=== PATIENT | female | born 2005 | race Hispanic/Latino ===

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

== ENCOUNTER 2024-04-30 14:55 | Emergency (ER) | payer MEDICAID ==
[~2024-04-30] VITALS: Ht 160 cm; Wt 63.5 kg
--- NOTE | 2024-04-30 15:25 | EKG ---
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
--- NOTE | 2024-04-30 15:26 | ERN ---
ED Note History of Present Illness Stated Complaint: CP,VOMITTING, CRAMPING Chief Complaint: Abdominal Pain Time Seen by MD: 14:55 Dictation: History of present illness: 19-year-old female with history of anxiety, testosterone treatment for gender transition presented to ED with complaints of chest tightness over the epigastric region, abdominal cramps, vomiting since yesterday night. She developed chest pain suddenly which worsens with change in body position. She vomited twice which was clear disease as per the patient she stopped vaping this February, she use weed occasionally. She states that she uses weed occasionally. Her last menstrual period was on 18 March which lasted for only 1 day. She denies fever, no dysuria, no shortness of breath, no palpitations, no sweating. Allergies: Coded Allergies: amoxicillin (Unverified Allergy, Unknown, 03/21/19) clavulanic acid (Unverified Allergy, Unknown, 03/21/19) Home Meds Active Scripts Pantoprazole Sodium (Pantoprazole Sodium) 20 Mg Tablet.dr, 1 TAB PO DAILY for 10 Days, #10 TAB 0 Refills Prov:NATALIA RAMÍREZ MD 04/30/24 Sulfamethoxazole/Trimethoprim (Bactrim Ds Tablet) 1 Each Tablet, 1 TAB PO BID for 7 Days, #14 TAB 0 Refills Prov:PAKO RAO 08/17/22 Sulfamethoxazole/Trimethoprim (Bactrim Ds Tablet) 1 Each Tablet, 1 TAB PO BID PRN for uti for 7 Days, #14 TAB 0 Refills Prov:THERESE BORJA MD 02/17/21 Ibuprofen (Ibuprofen 800 mg Tab) 800 Mg Tab, 800 MG PO Q8H PRN for pain for 10 Days, #30 TAB 0 Refills Prov:THERESE BORJA MD 02/17/21 Past Medical History Past Medical History: Anxiety, Depression Additional Past Medical Hx: PTSD, BULEMIA, ANOREXIA Surgical History: None LMP: Apr 16, 2024 : 0 Para: 0 Review of System Dictation REVIEW OF SYSTEMS Positive for epigastric tightness, lower abdominal cramps CONSTITUTIONAL: Denies fevers, chills, or night sweats. No unintentional weight loss reported. ENT: No hearing loss, otalgia, otorrhea, rhinitis, rhinorrhea, hoarseness, or sore throat. CARDIOVASCULAR: Denies any exertional angina, dyspnea on exertion, orthopnea, paroxysmal nocturnal dyspnea, palpitations claudication. PULMONARY: Denies any shortness of breath, cough, phlegm / sputum, hemoptysis, pleuritic chest pain. SLEEP: Denies morning headaches, daytime somnolence or napping. Denies difficulty falling asleep, staying asleep, waking from sleep. Denies knowledge of snoring. GASTROINTESTINAL: Denies any type of dysphagia to either liquids or solids. Denies nausea, vomiting, abdominal pain, diarrhea, constipation, blood in stools . NEUROLOGICAL: Denies headache, motor weakness, sensory deficit, vertigo / spinning sensation, gait abnormalities, or tremors. GENITOURINARY: Denies frequency, urgency, nocturia, hematuria or incontinence, low urinary stream, straining to void, urinary intermittency or hesitancy ENDOCRINOLOGY: Denies polyuria, polydipsia, polyphagia or heat / cold intolerance. HEMATOLOGY: Denies thrombophilia / previous clots, or coagulopathy / bleeding disorders. ONCOLOGIC: Denies personal history of malignancy. DERMATOLOGIC: Denies rashes or pruritus. PSYCHIATRIC: Denies any suicidal or homicidal ideation. Denies hallucinations. Initial Vital Sign VS Vital Signs Date Time Temp Pulse Resp B/P (MAP) Pulse Ox O2 Delivery O2 Flow Rate FiO2 04/30/24 14:57 98.6 126 16 150/101 99 Room Air 0 04/30/24 18:19 21 Physical Exam Dictation PHYSICAL EXAM GENERAL APPEARANCE: Well nourished . Awake and alert. Oriented to time, place and person. No acute cardiopulmonary distress. HEENT: Head normocephalic , atraumatic. Sclera anicteric . Pupils are round and reactive. Extraocular movements intact . No conjunctival injection. No nasal congestion. No throat congestion .Oral mucosa moist. NECK: Supple. No JVD. No thyromegaly. No submental, submandibular, pre- /postauricular, occipital or supraclavicular lymphadenopathy. No carotid bruits. CHEST: Normal chest expansion. No Telemetry. LUNGS: Clear to auscultation bilaterally . No rales, rhonchi or any wheezing. Equal tactile fremitus. Resonant to percussion . CARDIOVASCULAR: Regular rate and rhythm. S1 and S2 normal. No rubs, murmurs or gallops. ABDOMEN: Soft, suprapubic tenderness+ and nondistended. There is no rebound tenderness, voluntary guarding, or rigidity. No hepatosplenomegaly. Bowel sounds normal in all four quadrants . NEUROLOGICAL: Cranial nerves II-XII grossly intact. Motor is 5/5 in bilateral upper and lower extremities . No sensory deficits. EXTREMITIES: No edema, No cyanosis , No clubbing. Good capillary refill. SKIN: No skin breakdown. No rashes or lesions . PSYCHIATRY: Normal affect .No auditory or visual hallucinations. Normal speech. No dysarthria. Results (Laboratory/Radiology) Laboratory/Radiology Laboratory Tests Test 04/30/24 15:36 04/30/24 17:40 White Blood Count 7.9 K/uL (4.8-10.8) Red Blood Count 5.94 MIL/uL (4.00-5.50) H Hemoglobin 16.2 g/dL (12.0-16.0) H Hematocrit 48.4 % (36-48) H Mean Corpuscular Volume 81.5 fL (80-100) Mean Corpuscular Hemoglobin 27.3 pg (27.0-33.0) Mean Corpuscular Hemoglobin Concent 33.5 g/dL (32.0-36.0) Red Cell Distribution Width 15.1 % (11.0-15.5) Platelet Count 142 K/uL (130-400) Mean Platelet Volume 11.7 fL (7.5-10.5) H Nucleated Red Blood Cells 0.0 % (0.0-0.19) Sodium Level 139 mmol/L (136-145) Potassium Level 3.7 mmol/L (3.5-5.1) Chloride Level 107 mmol/L (101-111) Carbon Dioxide Level 22 mmol/L (21-32) Blood Urea Nitrogen 8 mg/dL (7-18) Creatinine 0.7 mg/dL (0.5-1.0) Glomerular Filtration Rate Calc 127 mL/min (>90) Random Glucose 103 mg/dL (70-105) Total Calcium 9.5 mg/dL (8.5-10.1) Troponin I High Sensitivity < 4 ng/L (4-50) L Urine Color COLORLESS (YELLOW) Urine Appearance CLEAR (CLEAR) Urine pH 7.0 (5.0-8.0) Urine Specific [place] 1.004 (1.001-1.031) Urine Protein NEGATIVE mg/dL (NEGATIVE) Urine Glucose (UA) NEGATIVE mg/dL (NEGATIVE) Urine Ketones NEGATIVE mg/dL (NEGATIVE) Urine Occult Blood NEGATIVE (NEGATIVE) Urine Nitrate NEGATIVE (NEGATIVE) Urine Bilirubin NEGATIVE mg/dL (NEGATIVE) Urine Urobilinogen 0.2 mg/dL (0.2-1.0) Urine Leukocyte Esterase 250 Robinson/uL (NEGATIVE) H Urine RBC 0-1 /HPF (0-1) Urine WBC 6-10 /HPF (0-1) H Urine Squamous Epithelial Cells FEW /HPF (0-2) Urine Bacteria RARE /HPF (None Seen) Urine HCG, Qualitative NEGATIVE (NEGATIVE) Ultrasound Comment: PROCEDURE: ABDOMEN - US ABDOMINAL COMPLETE Exam Type: US ABDOMINAL COMPLETE Clinical Information: Abdominal cramps, vomiting LMP Feb 2024 Comparison: None Findings: The liver shows normal echogenicity and is otherwise unremarkable. The liver measures less than 16 cm in length. Doppler evaluation shows patent portal and hepatic veins. The gallbladder shows no significant abnormalities. Specifically, no calculi are seen. The gallbladder wall thickness is 2 mm. No bile duct dilatation is noted. The common bile duct measures 4 mm. The right kidney measures 10.2 x 4 cm. The left kidney measures 8.6 x 4 cm. The kidneys are normal in size and echogenicity. No hydronephrosis or renal calculi are seen. There are no renal masses. The pancreas is unremarkable. The spleen is unremarkable. The aorta and inferior vena cava show no significant abnormalities. IMPRESSION: Normal exam. ED Course ED Course Orders Procedure Category Date Status Time 12 Lead Ekg Tracing- EKG 04/30/24 Complete Technical 15:13 Troponin I High LAB 04/30/24 Complete Sensitivity 15:13 Urinalysis Profile LAB 04/30/24 Complete 15:13 ,Urine Test LAB 04/30/24 Complete 15:13 Dicyclomine Hcl PHA 04/30/24 Complete (Bentyl 20mg Inj) 15:30 Cbc Without LAB 04/30/24 Complete Differential 15:13 Basic Metabolic Panel LAB 04/30/24 Complete 15:40 Us Abdominal Complete US 04/30/24 Resulted 16:08 Culture Urine ANSELMO 04/30/24 In Process 18:07 Current Medications Medications (Trade) Dose Ordered Sig/Elicia Route PRN Reason Start Time Stop Time Status Last Admin Dose Admin Dicyclomine HCl (Bentyl 20mg Inj) 10 mg ONCE ONCE IM 3/10/25 15:30 04/30/24 15:31 DC 04/30/24 18:25 Vital Signs Date Time Temp Pulse Resp B/P (MAP) Pulse Ox O2 Delivery O2 Flow Rate FiO2 04/30/24 18:19 98.6 92 16 142/92 99 Room Air* 0 21 04/30/24 14:57 98.6 126 16 150/101 99 Room Air 0 3:15 p.m. patient is hemodynamically stable. Complains of epigastric tightness and lower abdominal cramping. We will request CBC, BNP, urinalysis, UPT and ultrasound abdomen. 4:30 p.m.: Patient is hemodynamically stable. Status post 1 dose of dicycl omine. Pending urinalysis 5:15 p.m. pending urinalysis. Patient states that she feels better. We will discharge home after the urine analysis results. . Medical Decision Making MDM Differential diagnosis : Urinary tract infection, ACS, Rationale: Tests considered and ordered secondary to shared decision making include: I will re-evaluate the patient after treatment and diagnostic exams have returned to determine whether they require further testing, can be safely disc harged home, or need admission for further treatment and evaluation. Given the social determinants of health affecting care, including literacy, access to medical care, prescription drug management, and [id number] drugs, I will ensure that treatment plans are tailored accordingly. There are no social concerns with this patient. Risk of complication and/or morbidity or mortality of patient management: None Need for hospitalization: Patient does not meet criteria for hospitalization. Need for emergency major/minor surgery: No Prescription drug management Prescriptions will include symptomatic care Medications-Per medication reconciliation Previous outside records reviewed: Old ER visits. Patient's prior external medical records from other ER visits were reviewed by me as indicated. Prior testing and results from previous visits were reviewed. Prior tests were taken into account with medical decision making and resource utilization, independent historian/historians were used to obtain complete medic al history. I independently interpreted the test that were performed, results were reviewed by me and considered findings on radiology. Medical management and examination interpretation discussions was done by me with other qualified healthcare professionals as indicated for the patient's care. Revaluation-patient remained hemodynamically stable. CBC, BMP, ultrasound abdomen was negative. Disposition : Discharge home DX & DISP Disposition: Discharge Departure Impression: Primary Impression: Acute gastritis Condition: Stable Scripts Pantoprazole Sodium (Pantoprazole Sodium) 20 Mg Tablet.dr 1 TAB PO DAILY for 10 Days, #10 TAB 0 Refills Prov: NATALIA RAMÍREZ MD 04/30/24 Additional Instructions: Follow-up with primary care provider in 1-2 days Take medications as directed here in the emergency room. It is okay to continue home medications unless otherwise discussed during your visit in the emergency room today. Increase oral hydration. If a wound culture or urine culture was ordered here in the emergency room department, please follow-up with primary care provider and advised them to get reports from our facility. If you had any Tres wrap/splints that were applied here placed to not remove them until you see your primary care physician. Return to your nearest emergency room if symptoms worsen or if there is no improvement. Call 911 if you need immediate assistance. Referrals: ARMANDO LUTZ DO (PCP) I performed a substantive portion of the visit. I have reviewed and personally made and approve the management plan that is documented in the notes by myself with ANDRES/resident. I acknowledged full responsibility for the patient's management plan. NATALIA RAMÍREZ MD Apr 30, 2024 15:26 CHRISTOPHER SMITH DO Apr 30, 2024 18:44
[2024-04-30 15:50] LABS: HEMATOCRIT 48.4 % (36-48); MEAN CORPUSCULAR HEMOGLOBIN 27.3 pg (27.0-33.0); MEAN CORPUSCULAR HGB CONC 33.5 g/dL (32.0-36.0); MEAN CORPUSCULAR VOLUME 81.5 fL (80-100); RED BLOOD CELL COUNT(AUTO) 5.94 MIL/uL (4.00-5.50); RED CELL DISTRIBUTION WIDTH 15.1 % (11.0-15.5); WHITE BLOOD COUNT (AUTO) 7.9 K/uL (4.8-10.8)
[2024-04-30 16:33] LABS: CREATININE 0.7 mg/dL (0.5-1.0); POTASSIUM 3.7 mmol/L (3.5-5.1)
--- NOTE | 2024-04-30 16:45 | HMCIMG ---
Exam Type: US ABDOMINAL COMPLETE Clinical Information: Abdominal cramps, vomiting LMP Feb 2024 Comparison: None Findings: The liver shows normal echogenicity and is otherwise unremarkable. The liver measures less than 16 cm in length. Doppler evaluation shows patent portal and hepatic veins. The gallbladder shows no significant abnormalities. Specifically, no calculi are seen. The gallbladder wall thickness is 2 mm. No bile duct dilatation is noted. The common bile duct measures 4 mm. The right kidney measures 10.2 x 4 cm. The left kidney measures 8.6 x 4 cm. The kidneys are normal in size and echogenicity. No hydronephrosis or renal calculi are seen. There are no renal masses. The pancreas is unremarkable. The spleen is unremarkable. The aorta and inferior vena cava show no significant abnormalities. IMPRESSION: Normal exam.
[2024-04-30] MEDS ORDERED: PANT20TA18 PO (17:22)
[2024-04-30 18:04] LABS: APPEARANCE,URINE CLEAR (CLEAR); BILIRUBIN,URINE NEGATIVE (NEGATIVE); COLOR,URINE COLORLESS (YELLOW); GLUCOSE, URINE (UA) NEGATIVE (NEGATIVE); KETONES,URINE NEGATIVE (NEGATIVE); LEUKOCYTE ESTERASE ,URINE 250 Leu/uL (NEGATIVE); NITRATE,URINE NEGATIVE (NEGATIVE); OCCULT BLOOD,URINE NEGATIVE (NEGATIVE); PROTEIN,URINE NEGATIVE (NEGATIVE); UROBILINOGEN,URINE 0.2 mg/dL (0.2-1.0)
[2024-04-30 18:07] LABS: ADD UA MICROSCOPIC YES
[2024-04-30 18:12] LABS: BACTERIA,URINE RARE /HPF (None Seen); RBC,URINE 0-1 /HPF (0-1); SQUAMOUS EPITHELIAL CELL,UR FEW /HPF (0-2)
[2024-04-30 18:17] LABS: HCG,QUALITATIVE URINE NEGATIVE (NEGATIVE)
[2024-04-30 18:19] VITALS: BP 142/92; PULSE 92; RESP 16; TEMP 98.6; O2SAT 99
[2024-04-30] MEDS: DICYCLOMINE 20MG (10MG/ML) AMP IM ONE (18:25)
== END 2024-04-30 19:12 | disposition home or self-care (01) ==
LOC: EDH 14:55
DX: K29.00 Acute gastritis without bleeding (principal); Z79.899 Other long term (current) drug therapy; Z88.0 Allergy status to penicillin
CPT/HCPCS: 99285; 76700; 84484; 80048; 85027; 87086 ×2; 87186; 81001; 81025; 36415; 96372; 93005; J0500

== ENCOUNTER 2024-07-25 15:15 | Emergency (ER) | payer MEDICAID ==
[~2024-07-25] VITALS: Ht 160 cm; Wt 65.8 kg
[~2024-07-25 15:15] MED LIST changes: +PANT20TA18 PO
--- NOTE | 2024-07-25 15:35 | ERN ---
ED Note History of Present Illness Stated Complaint: LOWER BACK PAIN, FLAKES/RED DOTS IN PEE Time Seen by MD: 15:27 Dictation: PATIENT IS A 19-YEAR-OLD FEMALE COMING IN TODAY WITH HAVING INTERMITTENT LEFT FLANK PAIN WITHOUT NAUSEA VOMITING OR CHANGES IN URINATION FOR A WHILE. SHE IS UNABLE TO FIND HOW LONG STATES SHE IS HAVING NO PAIN NOW. NO FEVER NO CHILLS. SHE STATES THE ONLY REASON SHE CAME TODAY AND SAID IT GOING TO HER DOCTOR AT [facility] IS I SAW SOME RED FLAKESS IN MY PA AND I THOUGHT IT BETTER COME TO THE EMERGENCY ROOM. DENIES ANY HISTORY OF URINARY URGENCY FREQUENCY AND NO PAIN AT THIS TIME. Allergies: Coded Allergies: amoxicillin (Unverified Allergy, Unknown, 03/21/19) clavulanic acid (Unverified Allergy, Unknown, 03/21/19) Home Meds Active Scripts Pantoprazole Sodium (Pantoprazole Sodium) 20 Mg Tablet.dr, 1 TAB PO DAILY for 10 Days, #10 TAB 0 Refills Prov:NATALIA RAMÍREZ MD 04/30/24 Sulfamethoxazole/Trimethoprim (Bactrim Ds Tablet) 1 Each Tablet, 1 TAB PO BID for 7 Days, #14 TAB 0 Refills Prov:PAKO RAOP 08/17/22 Sulfamethoxazole/Trimethoprim (Bactrim Ds Tablet) 1 Each Tablet, 1 TAB PO BID PRN for uti for 7 Days, #14 TAB 0 Refills Prov:THERESE BORJA MD 02/17/21 Ibuprofen (Ibuprofen 800 mg Tab) 800 Mg Tab, 800 MG PO Q8H PRN for pain for 10 Days, #30 TAB 0 Refills Prov:THERESE BORJA MD 02/17/21 Past Medical History Past Medical History: Anxiety, Depression Additional Past Medical Hx: PTSD, BULEMIA, ANOREXIA Surgical History: None : 0 Para: 0 RN Note Reviewed/Agreed w/PFSH: Yes Review of System Dictation CONSTITUTIONAL: NEGATIVE EXCEPT FOR HPI HEAD/FACE: NEGATIVE EXCEPT FOR HPI EENT: NEGATIVE EXCEPT FOR HPI RESPIRATORY: NEGATIVE EXCEPT FOR HPI GASTROINTESTINAL/ABDOMINAL: NEGATIVE EXCEPT FOR HPI GENITOURINARY: NEGATIVE EXCEPT FOR HPI RED FLAKES IN URINE INTERMITTENT RIGHT FLANK PAIN NONE CURRENT MUSCULOSKELETAL: NEGATIVE EXCEPT FOR HPI INTEGUMENTARY: NEGATIVE EXCEPT FOR HPI NEUROLOGICAL/PSYCH: NEGATIVE EXCEPT FOR HPI HEMATOLOGIC/LYMPHATIC: NEGATIVE EXCEPT FOR HPI ALL SYSTEMS NEGATIVE, EXCEPT NOTED ABOVE. 13 POINT REVIEW OF SYSTEMS ASSESSED AND ALL NEGATIVE EXCEPT FOR ABOVE. Initial Vital Sign VS Vital Signs Date Time Temp Pulse Resp B/P (MAP) Pulse Ox O2 Delivery O2 Flow Rate FiO2 07/25/24 15:39 94 16 142/86 98 0 Physical Exam Dictation VITAL SIGNS REVIEWED GENERAL APPEARANCE: ALERT, ORIENTED X 3, NO ACUTE DISTRESS, WELL DEVELOPED, NOURISHED. HEAD AND FACE: NON-TRAUMATIC. EYES: PERRL, PINK CONJUNCTIVAS, EYELID NO TRAUMA, ANTERIOR CHAMBER WITH ARCUS SENILIS. EARS: PINNAS INTACT AND NO SIGNS OF TRAUMA OR ERYTHEMA EAR CANALS CLEAR AND NO DISCHARGE TM NO ERYTHEMA NOSE: NO DISCHARGE, NO BLEEDING. OROPHARYNX: MOUTH NORMAL, TONGUE PINK, PHARYNX CLEAR,NO ERYTHEMA, TONSILS NO EXUDATES, NO ABSCESSES NOTED, MUCOUS MEMBRANE MOIST NECK: SUPPLE, NON-TENDER, NO THYROMEGALY, NO MASSES, NO JVD, NO BRUITS BREAST:DEFERRED CHEST:NO TENDERNESS, NO CREPITUS, NO PARADOXICAL MOVEMENT, NO RETRACTIONS LUNGS:CLEAR, WELL-VENTILATED, SYMMETRIC, NO RALES, NO WHEEZING, NO RHONCHI, NO STRIDOR, GOOD BREATH SOUNDS BILATERALLY HEART: REGULAR RATE, REGULAR RHYTHM, NO MURMUR, NO GALLOPS VASCULAR: NO PERIPHERAL EDEMA, ABDOMEN: SOFT, POSITIVE BOWEL SOUNDS, NONDISTENDED, NO GUARDING, NONTENDER, NO REBOUND, NO MASSES NO HEPATOMEGALY, NO SPLENOMEGALY, NO HERNANDEZ'S SIGN, NO HERNIAS. RECTAL: DEFERRED GENITAL: DEFERRED NEUROLOGICAL: NORMAL SPEECH, MOTOR FUNCTION INTACT, SENSORY FUNCTION INTACT MUSCULOSKELETAL: NECK NONTENDER, FULL RANGE OF MOTION, BACK NONTENDER, FULL RANGE OF MOTION, EXTREMITIES: NONTENDER, FULL RANGE OF MOTION SKIN: COLOR PINK, DRY, NO TURGOR, NO RASH, NO LACERATIONS, NO ABRASIONS, NO CONTUSIONS. LYMPHATIC: DEFERRED Results (Laboratory/Radiology) Laboratory/Radiology Laboratory Tests Test 07/25/24 15:44 07/25/24 15:57 Urine Color COLORLESS (YELLOW) Urine Appearance CLEAR (CLEAR) Urine pH 7.0 (5.0-8.0) Urine Specific [place] 1.001 (1.001-1.031) Urine Protein NEGATIVE mg/dL (NEGATIVE) Urine Glucose (UA) NEGATIVE mg/dL (NEGATIVE) Urine Ketones NEGATIVE mg/dL (NEGATIVE) Urine Occult Blood NEGATIVE (NEGATIVE) Urine Nitrate NEGATIVE (NEGATIVE) Urine Bilirubin NEGATIVE mg/dL (NEGATIVE) Urine Urobilinogen 0.2 mg/dL (0.2-1.0) Urine Leukocyte Esterase NEGATIVE Robinson/uL Urine HCG, Qualitative NEGATIVE (NEGATIVE) White Blood Count 7.0 K/uL (4.8-10.8) Red Blood Count 4.95 MIL/uL (4.00-5.50) Hemoglobin 14.9 g/dL (12.0-16.0) Hematocrit 43.1 % (36-48) Mean Corpuscular Volume 87.1 fL (80-100) Mean Corpuscular Hemoglobin 30.1 pg (27.0-33.0) Mean Corpuscular Hemoglobin Concent 34.6 g/dL (32.0-36.0) Red Cell Distribution Width 12.7 % (11.0-15.5) Platelet Count 219 K/uL (130-400) Mean Platelet Volume 10.5 fL (7.5-10.5) Immature Granulocyte % (Auto) 0.6 % (0-1) Neutrophils (%) (Auto) 56.3 % (40.0-77.0) Lymphocytes (%) (Auto) 35.5 % (21.0-51.0) Monocytes (%) (Auto) 7.2 % (3.0-13.0) Eosinophils (%) (Auto) 0.3 % (0.0-8.0) Basophils (%) (Auto) 0.1 % (0.0-5.0) Neutrophils # (Auto) 3.9 K/uL (1.8-7.7) Lymphocytes # (Auto) 2.5 K/uL (1.0-4.8) Monocytes # (Auto) 0.5 K/uL (0.1-1.0) Eosinophils # (Auto) 0.02 K/uL (0.00-0.70) Basophils # (Auto) 0.01 K/uL (0.00-0.20) Absolute Immature Granulocyte (auto 0.04 K/uL (0-1) Nucleated Red Blood Cells 0.0 % (0.0-0.19) Sodium Level 141 mmol/L (136-145) Potassium Level 3.6 mmol/L (3.5-5.1) Chloride Level 106 mmol/L (101-111) Carbon Dioxide Level 25 mmol/L (21-32) Blood Urea Nitrogen 9 mg/dL (7-18) Creatinine 0.7 mg/dL (0.5-1.0) Glomerular Filtration Rate Calc 127 mL/min (>90) Random Glucose 78 mg/dL (70-105) Total Calcium 9.2 mg/dL (8.5-10.1) Labs Reviewed?: Yes ED Course ED Course Orders Procedure Category Date Status Time Cbc With Differential LAB 07/25/24 Complete ,Urine Test LAB 07/25/24 Complete : Basic Metabolic Panel LAB 07/25/24 Complete Urinalysis Profile LAB 07/25/24 Complete Vital Signs Date Time Temp Pulse Resp B/P (MAP) Pulse Ox O2 Delivery O2 Flow Rate FiO2 07/25/24 15:39 94 16 142/86 98 0 1625/patient's labs are completely unremarkable and [place] book normal. She will be discharged home to follow up a doctor at [facility]. Medical Decision Making MDM Medical decision-making based on urinalysis hCG and basic labs for flank pain. Labs are completely unremarkable and nothing there to substantiate her claims of red flags in her urine. Per follow up with her primary care doctor as needed DX & DISP Disposition: Discharge Departure Impression: Primary Impression: Right flank pain Condition: Stable Additional Instructions: Follow-up with primary care provider in 1 to 2 days. Take medications as directed here in the emergency room. Okay to continue home medications unless otherwise discussed during your visit in the emergency room today. Return to your nearest emergency room if symptoms worsen or if there is no improvement. Call 911 if you need immediate assistance. Take Tylenol or Motrin [id number] as needed and if no contraindications are present. Increase oral hydration. A wound culture or urine culture was ordered here in the emergency room department please follow-up with primary care provider and advise them to get repeat ports from our facility. If you had any Tres wrap/splints that were applied here, please do not remove them until you see your primary care or specialty. Tylenol or Motrin [id number] as needed for pain. Follow up with your doctor at [facility] for management Referrals: SELF,REFERRAL (PCP) Time of Disposition: 16:28 I have reviewed the case, and I agree with, Diagnosis and Plan ALEXANDER SOLIS NP Jul 25, 2024 15:35
[2024-07-25 16:00] LABS: APPEARANCE,URINE CLEAR (CLEAR); BILIRUBIN,URINE NEGATIVE (NEGATIVE); COLOR,URINE COLORLESS (YELLOW); GLUCOSE, URINE (UA) NEGATIVE (NEGATIVE); KETONES,URINE NEGATIVE (NEGATIVE); LEUKOCYTE ESTERASE ,URINE NEGATIVE Leu/uL (NEGATIVE); NITRATE,URINE NEGATIVE (NEGATIVE); OCCULT BLOOD,URINE NEGATIVE (NEGATIVE); PROTEIN,URINE NEGATIVE (NEGATIVE); UROBILINOGEN,URINE 0.2 mg/dL (0.2-1.0)
[2024-07-25 16:02] LABS: BASOPHILS # (AUTO) 0.01 K/uL (0.00-0.20); BASOPHILS % (AUTO) 0.1 % (0.0-5.0); EOSINOPHILS # (AUTO) 0.02 K/uL (0.00-0.70); EOSINOPHILS % (AUTO) 0.3 % (0.0-8.0); HEMATOCRIT 43.1 % (36-48); IMMATURE GRANULOCYTE ABSOLUTE 0.04 K/uL (0-1); LYMPHOCYTES # (AUTO) 2.5 K/uL (1.0-4.8); LYMPHOCYTES % (AUTO) 35.5 % (21.0-51.0); MEAN CORPUSCULAR HEMOGLOBIN 30.1 pg (27.0-33.0); MEAN CORPUSCULAR HGB CONC 34.6 g/dL (32.0-36.0); MEAN CORPUSCULAR VOLUME 87.1 fL (80-100); MONOCYTES # (AUTO) 0.5 K/uL (0.1-1.0); MONOCYTES % (AUTO) 7.2 % (3.0-13.0); NEUTROPHILS # (AUTO) 3.9 K/uL (1.8-7.7); NEUTROPHILS % (AUTO) 56.3 % (40.0-77.0); PLATELET COUNT (AUTO) 219 K/uL (130-400); RED BLOOD CELL COUNT(AUTO) 4.95 MIL/uL (4.00-5.50); RED CELL DISTRIBUTION WIDTH 12.7 % (11.0-15.5)
[2024-07-25 16:02] LABS: ADD UA MICROSCOPIC NO; HCG,QUALITATIVE URINE NEGATIVE (NEGATIVE)
[2024-07-25 16:24] LABS: CREATININE 0.7 mg/dL (0.5-1.0); POTASSIUM 3.6 mmol/L (3.5-5.1)
[2024-07-25 16:45] VITALS: BP 135/85; PULSE 88; RESP 16; TEMP 98; O2SAT 98
== END 2024-07-25 16:46 | disposition home or self-care (01) ==
LOC: EDH 15:15
DX: R10.9 Unspecified abdominal pain (principal); Z79.899 Other long term (current) drug therapy; Z88.0 Allergy status to penicillin
CPT/HCPCS: 36415; 80048; 81003; 81025; 85025; 99283

== ENCOUNTER 2024-09-04 19:10 | Emergency (ER) | payer MEDICAID ==
[~2024-09-04] VITALS: Ht 160 cm; Wt 64.4 kg
[~2024-09-04 19:10] MED LIST changes: +CYCL-309 PO; +IBUP-2070 PO
[2024-09-04 19:57] VITALS: BP 121/78; PULSE 95; RESP 20; TEMP 98.3
[2024-09-04 21:09] LABS: IMMATURE GRANULOCYTE ABSOLUTE 0.03 K/uL (0-1); NUCLEATED RED BLOOD CELLS 0.0 % (0.0-0.19); PLATELET COUNT (AUTO) 312 K/uL (130-400); RED BLOOD CELL COUNT(AUTO) 5.27 MIL/uL (4.00-5.50); RED CELL DISTRIBUTION WIDTH 11.7 % (11.0-15.5); WHITE BLOOD COUNT (AUTO) 8.1 K/uL (4.8-10.8)
[2024-09-04 21:19] LABS: CREATININE 0.7 mg/dL (0.5-1.0); GLOMERULAR FILTR. RATE CALC 127.0 mL/min (>90); GLUCOSE,RANDOM 89.0 mg/dL (70-105); SODIUM SERUM 142.0 mmol/L (136-145); UREA NITROGEN, BLOOD 12.0 mg/dL (7-18)
[2024-09-04 21:20] LABS: HCG,QUALITATIVE URINE NEGATIVE (NEGATIVE)
[2024-09-04 21:21] LABS: APPEARANCE,URINE CLEAR (CLEAR); GLUCOSE, URINE (UA) NEGATIVE (NEGATIVE); LEUKOCYTE ESTERASE ,URINE NEGATIVE Leu/uL (NEGATIVE); NITRATE,URINE NEGATIVE (NEGATIVE); OCCULT BLOOD,URINE NEGATIVE (NEGATIVE); SQUAMOUS EPITHELIAL CELL,UR RARE /HPF (0-2)
--- NOTE | 2024-09-04 21:48 | ERN ---
General Chief Complaint: Breast Problem Stated Complaint: RT BREAST SWELLING W. DISCHARGE Time Seen by MD: 20:02 Time Seen by Midlevel: 20:02 Source: patient History of Present Illness Initial Comments 19-year-old female presents to emergency department due to breast tenderness and swelling onset 11 days. She had clear liquid drainage from the right nipple when squeezing the nipple. Patient states she was previously taking testosterone due to being transgender, patient discontinued testosterone six months ago. She is currently on Nexplanon control. LMP 08/29/24. Denies fever, breast rash / redness, further drainage, or lump/bump felt. Allergies: Coded Allergies: amoxicillin (Unverified Allergy, Unknown, 03/21/19) clavulanic acid (Unverified Allergy, Unknown, 03/21/19) Home Meds Active Scripts Ibuprofen (Ibuprofen) 600 Mg Tablet, 600 MG PO Q6H PRN for PAIN, #30 TAB Prov:ALEXANDER SOLIS NP 07/29/24 Cyclobenzaprine HCl (Cyclobenzaprine HCl) 10 Mg Tablet, 1 TAB PO TID for muscle spasms for 10 Days, #30 TAB 0 Refills Prov:ALEXANDER SOLIS NP 07/29/24 Pantoprazole Sodium (Pantoprazole Sodium) 20 Mg Tablet.dr, 1 TAB PO DAILY for 10 Days, #10 TAB 0 Refills Prov:NATALIA RAMÍREZ MD 04/30/24 Sulfamethoxazole/Trimethoprim (Bactrim Ds Tablet) 1 Each Tablet, 1 TAB PO BID for 7 Days, #14 TAB 0 Refills Prov:PAKO RAOP 08/17/22 Sulfamethoxazole/Trimethoprim (Bactrim Ds Tablet) 1 Each Tablet, 1 TAB PO BID PRN for uti for 7 Days, #14 TAB 0 Refills Prov:THERESE BORJA MD 02/17/21 Ibuprofen (Ibuprofen 800 mg Tab) 800 Mg Tab, 800 MG PO Q8H PRN for pain for 10 Days, #30 TAB 0 Refills Prov:THERESE BORJA MD 02/17/21 Past Medical History Past Medical History: No Pertinent History Medical History Other: PTSD, BULEMIA, ANOREXIA Past Surgical History: None Female( History) History: Not Applicable LMP: Aug 29, 2024 : 0 Para: 0 Aborts: 0 ROS Dictation Constitutional: Negative for fever,chills, and weight loss Eyes: Negative for injury, pain,redness, and discharge ENT: Negative for injury,pain or swelling Cardiovascular: Negative for chest pain, palpitations, and edema Respiratory: Negative for shortness of breath, cough, and wheezing Breast: Positive for breast tenderness, swelling Abdomen/GI: Negative for abdominal pain, nausea, vomiting, diarrhea, and constipation Back: Negative for injury and pain : Negative for painful urination, bleeding or discharge MS/Extremity: Negative for injury and deformity Skin: Negative for rash, and discoloration Neuro: Negative for headache, weakness, numbness, tingling, and seizure Psych: Negative for suicide ideation, homicidal ideation, and hallucinations Physical Exam Physical Exam Dictation General: awake, alert, no acute distress Head/Face: Normocephalic, atraumatic Eyes: PERRL, EOMI, normal conjunctiva ENT: oral cavity clear, oral mucosa moist Neck: Supple, normal range of motion Cardiovascular: RRR, normal S1/S2 Respiratory: CTAB, no respiratory distress Breast: Mild right breast tenderness, no erythema, no rash, no drainage, no marie mps palpated Abdomen: Soft, non-tender, non-distended, no guarding or rebound. Skin: Warm, dry, normal turgor, no rash MS/Extremity: Pulses equal, no cyanosis, neurovascular intact, FROM Neuro: COAx4, GCS 15, no neurological deficits, normal gait Psych: Normal behavior, mood, and affect normal Results Laboratory and Microbiology Lab and Micro Result Laboratory Tests Test 09/04/24 21:00 White Blood Count 8.1 K/uL (4.8-10.8) Red Blood Count 5.27 MIL/uL (4.00-5.50) Hemoglobin 16.0 g/dL (12.0-16.0) Hematocrit 45.8 % (36-48) Mean Corpuscular Volume 86.9 fL (80-100) Mean Corpuscular Hemoglobin 30.4 pg (27.0-33.0) Mean Corpuscular Hemoglobin Concent 34.9 g/dL (32.0-36.0) Red Cell Distribution Width 11.7 % (11.0-15.5) Platelet Count 312 K/uL (130-400) Mean Platelet Volume 10.5 fL (7.5-10.5) Immature Granulocyte % (Auto) 0.4 % (0-1) Neutrophils (%) (Auto) 52.8 % (40.0-77.0) Lymphocytes (%) (Auto) 40.5 % (21.0-51.0) Monocytes (%) (Auto) 5.2 % (3.0-13.0) Eosinophils (%) (Auto) 0.7 % (0.0-8.0) Basophils (%) (Auto) 0.4 % (0.0-5.0) Neutrophils # (Auto) 4.3 K/uL (1.8-7.7) Lymphocytes # (Auto) 3.3 K/uL (1.0-4.8) Monocytes # (Auto) 0.4 K/uL (0.1-1.0) Eosinophils # (Auto) 0.06 K/uL (0.00-0.70) Basophils # (Auto) 0.03 K/uL (0.00-0.20) Absolute Immature Granulocyte (auto 0.03 K/uL (0-1) Nucleated Red Blood Cells 0.0 % (0.0-0.19) Urine Color STRAW (YELLOW) Urine Appearance CLEAR (CLEAR) Urine pH 6.0 (5.0-8.0) Urine Specific Hamilton 1.008 (1.001-1.031) Urine Protein NEGATIVE mg/dL (NEGATIVE) Urine Glucose (UA) NEGATIVE mg/dL (NEGATIVE) Urine Ketones NEGATIVE mg/dL (NEGATIVE) Urine Occult Blood NEGATIVE (NEGATIVE) Urine Nitrate NEGATIVE (NEGATIVE) Urine Bilirubin NEGATIVE mg/dL (NEGATIVE) Urine Urobilinogen 0.2 mg/dL (0.2-1.0) Urine Leukocyte Esterase NEGATIVE Robinson/uL Urine RBC 0-1 /HPF (0-1) Urine WBC 0-1 /HPF (0-1) Urine Squamous Epithelial Cells RARE /HPF (0-2) Urine Bacteria RARE /HPF (None Seen) Urine HCG, Qualitative NEGATIVE (NEGATIVE) Sodium Level 142 mmol/L (136-145) Potassium Level 3.7 mmol/L (3.5-5.1) Chloride Level 104 mmol/L (101-111) Carbon Dioxide Level 26 mmol/L (21-32) Blood Urea Nitrogen 12 mg/dL (7-18) Creatinine 0.7 mg/dL (0.5-1.0) Glomerular Filtration Rate Calc 127 mL/min (>90) Random Glucose 89 mg/dL (70-105) Total Calcium 9.9 mg/dL (8.5-10.1) Labs Reviewed?: Yes MDM MDM: Differential diagnosis: Breast abscess, mastitis, hormonal changes, cellulitis Rationale: 19-year-old female presents to emergency department due to breast tenderness and swelling onset 11 days. She had clear liquid drainage from the right nipple when squeezing the nipple. Patient states she was previously taking testosterone due to being transgender, patient discontinued testosterone six months ago. She is currently on Nexplanon control. LMP 08/29/24. Denies fever, breast rash / redness, further drainage, or lump/bump felt. Labs obtained CBC and chemistry are within normal limits. UA negative for urinary tract infection and hCG urine negative. Breast US obtained preliminary report indicates some dilated ducts noted to the right breast, negative for abscess. Patient was administered ketorolac in the ED. Advised to follow up with PCP. Return to the emergency department for any worsening symptoms. Patient verbalized understanding. Patient stable for discharge. There are no social concerns with this patient. I independently interpreted the test that were performed, results were reviewed by me and considered findings on radiology if ordered. Medical management and examination interpretation discussions were had by me with other qualified healthcare professionals as indicated for the patient's care. ED Course Orders Procedure Category Date Status Time Us Breast Limited US 09/04/24 Taken Unilateral 20:35 Cbc With Differential LAB 09/04/24 Complete 20:35 Basic Metabolic Panel LAB 09/04/24 Complete 20:35 Urinalysis LAB 09/04/24 Complete W/Microscopic 20:35 ,Urine Test LAB 09/04/24 Complete 20:35 Ketorolac PHA 09/04/24 Complete Tromethamine 15mg/Ml 21:30 Current Medications Medications (Trade) Dose Ordered Sig/Elicia Route PRN Reason Start Time Stop Time Status Last Admin Dose Admin Ketorolac Tromethamine (toRADol) 15 mg ONCE ONCE IM 09/04/24 21:30 09/04/24 21:36 DC 09/04/24 21:49 Vital Signs Date Time Temp Pulse Resp B/P (MAP) Pulse Ox O2 Delivery O2 Flow Rate FiO2 09/04/24 19:57 98.2 95 20 121/78 98 Room Air DX & DISP Disposition: Discharge Departure Impression: Primary Impression: Breast tenderness in female Condition: Stable Additional Instructions: Discharge home. Rest. Follow up with primary care DrPatrice in 24 hours. Return to the ER for any acute changes or worsening symptoms. If any medications were prescribed take as directed. Okay to continue home medications unless otherwise discussed during your visit in the emergency room today. Patient was also advised to follow-up with primary care physician in 1 to 2 days for continued monitoring. Referrals: SELF,REFERRAL (PCP) I performed the substantive portion of the visit. I have reviewed and personally made and approve the management plan that is documented in the notes by myself or the ANDRES. I acknowledge full responsibility for the patient's management plan. TONYA ARIAS Sep 04, 2024 21:48
== END 2024-09-04 22:01 | disposition home or self-care (01) ==
LOC: EDH 19:10
DX: N64.4 Mastodynia (principal); Z79.899 Other long term (current) drug therapy; Z88.0 Allergy status to penicillin
CPT/HCPCS: 99285; 80048; 85025; 81001; 81025; 36415; 76642; 96372; J1885